=== PATIENT | male | born 1935 | race Caucasian/White ===

== ENCOUNTER 2017-01-13 10:59 | Emergency (ER) | payer MEDICARE, OTHER ==
[~2017-01-13 10:59] MED LIST: ASAB PO; BETIMOL0.5 % OP; BETIMOL0.5 % OPH; COZ25 PO; COZAAR PO; K500 PO; LEVOTHYROXIN50 MCG PO; LIPITOR20 PO; METPAKSF PO; NTG150 SL; SIMVASTATIN PO; [UNRECOGNIZED DRUG - REMARK]
== END 2017-01-13 11:05 | disposition home or self-care (01) ==
LOC: ER 10:59
DX: J39.2 Other diseases of pharynx (principal); I10 Essential (primary) hypertension; Z79.82 Long term (current) use of aspirin; Z79.899 Other long term (current) drug therapy
CPT/HCPCS: 96372; 99283